=== PATIENT | female | born 1950 | race Two or more races ===

== ENCOUNTER 2019-05-22 12:10 | Emergency (ER) | payer MEDICARE, OTHER ==
[~2019-05-22] VITALS: Ht 152.4 cm; Wt 59.9 kg
[~2019-05-22 12:10] MED LIST: ASPI81TA27; BENA20TA14; CLON2TAB; FLUO-125; OYST500T29; SIMV-8
[2019-05-22 13:32] VITALS: BP 143/52
[2019-05-22] MEDS: ACETAMINOPHEN 325 MG TAB PO ONE (14:12)
== END 2019-05-22 14:33 | disposition home or self-care (01) ==
LOC: ER 12:10
DX: S83.92XA Sprain of unspecified site of left knee, initial encounter (principal); M17.11 Unilateral primary osteoarthritis, right knee; E78.5 Hyperlipidemia, unspecified; I10 Essential (primary) hypertension; Z79.899 Other long term (current) drug therapy; X50.1XXA Overexertion from prolonged static or awkward postures, initial encounter; Y93.89 Activity, other specified; Y92.89 Other specified places as the place of occurrence of the external cause; Y99.8 Other external cause status
CPT/HCPCS: 73562

== ENCOUNTER 2019-07-16 21:17 | Emergency (ER) | payer MEDICARE, OTHER ==
[~2019-07-16] VITALS: Ht 152.4 cm; Wt 61.7 kg
[~2019-07-16 21:17] MED LIST changes: +ASPI-404; -ASPI81TA27
[2019-07-17] MEDS ORDERED: ACETAMINOPHEN/CODEINE#3 (300/30mg) TAB PO ONE (03:00)
[2019-07-17 03:02] VITALS: BP 156/62
== END 2019-07-17 03:13 | disposition home or self-care (01) ==
LOC: ER 21:19
DX: K08.89 Other specified disorders of teeth and supporting structures (principal); R22.0 Localized swelling, mass and lump, head; I10 Essential (primary) hypertension; E78.5 Hyperlipidemia, unspecified; Z79.899 Other long term (current) drug therapy; Z79.82 Long term (current) use of aspirin

== ENCOUNTER 2019-10-29 13:21 | Emergency (ER) | payer MEDICARE, OTHER ==
[~2019-10-29] VITALS: Ht 152.4 cm; Wt 61.7 kg
[2019-10-29 13:35] VITALS: BP 125/60
== END 2019-10-29 17:19 | disposition home or self-care (01) ==
LOC: ER 13:39
DX: J06.9 Acute upper respiratory infection, unspecified (principal); I10 Essential (primary) hypertension; E78.5 Hyperlipidemia, unspecified; Z90.89 Acquired absence of other organs
CPT/HCPCS: 93005

== ENCOUNTER 2019-11-14 12:28 | Emergency (ER) | payer MEDICARE, OTHER ==
[~2019-11-14] VITALS: Ht 152.4 cm; Wt 59.9 kg
[2019-11-14 15:39] VITALS: BP 141/69
== END 2019-11-14 15:49 | disposition home or self-care (01) ==
LOC: ER 12:28
DX: S09.11XA Strain of muscle and tendon of head, initial encounter (principal); E78.5 Hyperlipidemia, unspecified; I10 Essential (primary) hypertension; R42 Dizziness and giddiness; Z79.899 Other long term (current) drug therapy; W18.39XA Other fall on same level, initial encounter; Y93.89 Activity, other specified; Y92.89 Other specified places as the place of occurrence of the external cause; Y99.8 Other external cause status
CPT/HCPCS: 70450; 71046; 72125

== ENCOUNTER 2023-03-14 19:36 | Emergency (ER) | payer MEDICARE, OTHER ==
[~2023-03-14] VITALS: Ht 152.4 cm; Wt 56.5 kg
[~2023-03-14 19:36] MED LIST changes: -ASPI-404; +ASPI-543
[2023-03-14 22:38] LABS: Urine Bacteria FEW /hpf (None Seen); Urine Blood Negative /uL (Negative); Urine Specific Gravity 1.006 (1.001-1.035); Urine WBC 28 /hpf (0 - 5)
[2023-03-14 22:42] LABS: Albumin 4.2 g/dL (3.4-5.0); Calcium 9.3 mg/dL (8.5-10.1); Potassium 4.4 mmol/L (3.5-5.1)
[2023-03-14 22:46] LABS: BUN/Creatinine Ratio 12.1 (10.0-20.0); Bilirubin, Total 0.4 mg/dL (0.2-1.0); Total Protein 7.5 g/dL (6.4-8.2)
[2023-03-14 22:54] LABS: Basophils # (auto) 0 10 ^3/uL (0-0.2); Basophils % (auto) 0.4 % (0.0-2.0); Eosinophils # (auto) 0.2 10 ^3/uL (0-0.8); Eosinophils % (auto) 2.4 % (0.0-7.0); Hematocrit 36.4 % (36.0-46.0); Hemoglobin 12.4 g/dL (12.2-16.2); Lymphocytes # (auto) 3.6 10 ^3/uL (0.4-5.4); Lymphocytes % (auto) 45.7 % (10.0-50.0); Mean Corpuscular Hemoglobin 30.3 pg (28.0-32.0); Mean Corpuscular Volume 89.2 fL (80.0-100.0); Monocytes # (auto) 0.6 10 ^3/uL (0-1.3); Monocytes % (auto) 7.5 % (0.0-12.0); Neutrophils # (auto) 3.4 10 ^3/uL (1.6-8.6); Nucleated Red Blood Cells % 0.1 %; Red Blood Cells 4.08 10^6/uL (4.0-5.20); Red Cell Distribution Width 14.6 % (11.8-14.3); White Blood Cell 7.8 10^3/uL (4.4-10.8)
[2023-03-15] MEDS ORDERED: cefTRIAXone SOD 1,000 MG VL IM ONE (03:15)
[2023-03-15] MEDS ORDERED: METR500T PO (03:35)
[2023-03-15] MEDS ORDERED: PERCOT PO (03:35)
[2023-03-15] MEDS ORDERED: CIPR-173 PO (03:35)
[2023-03-15 04:05] VITALS: BP 160/54
[2023-03-17] MEDS ORDERED: NITR-87 PO (00:12)
== END 2023-03-15 04:09 | disposition home or self-care (01) ==
LOC: ER 19:36
DX: K57.10 Diverticulosis of small intestine without perforation or abscess without bleeding (principal); N39.0 Urinary tract infection, site not specified; F41.9 Anxiety disorder, unspecified; F32.9 Major depressive disorder, single episode, unspecified; I10 Essential (primary) hypertension; E78.5 Hyperlipidemia, unspecified; Z79.82 Long term (current) use of aspirin; Z79.899 Other long term (current) drug therapy; Z90.89 Acquired absence of other organs
CPT/HCPCS: 36415; 74176; 80053; 81001; 83690; 85025; 93005; 96372; 99285; J0696

== ENCOUNTER 2024-05-14 12:14 | Inpatient (IN) | payer MEDICARE, OTHER ==
[~2024-05-14] VITALS: Ht 157.5 cm; Wt 59.0 kg
[~2024-05-14 12:14] MED LIST changes: +BENA-36; -BENA20TA14; +CIPR-173 PO; +CLON-1005; -CLON2TAB; +METR500T PO; +NITR-87 PO; +PERCOT PO; -SIMV-8; +SIMV20TA20
[2024-05-14 12:51] LABS: Urine Bacteria None Seen /hpf (None Seen)
[2024-05-14 13:04] LABS: Urine Blood Negative /uL (Negative); Urine Clarity Clear (Clear); Urine Color Light-Yellow (Yellow); Urine Protein, UAD Negative (Negative); Urine Specific Gravity 1.006 (1.001-1.035); Urine Urobilinogen Normal (Negative); Urine WBC 2 /hpf (0 - 5); Urine pH 6.5 (5.0-9.0)
[2024-05-14] MEDS: ONDANSETRON HCL 4 MG/2 ML VIAL IV ONE (16:54)
[2024-05-14 17:04] LABS: Basophils # (auto) 0.1 10 ^3/uL (0-0.2); Basophils % (auto) 1.1 % (0.0-2.0); Eosinophils # (auto) 0.2 10 ^3/uL (0-0.8); Eosinophils % (auto) 2.6 % (0.0-7.0); Hematocrit 37.5 % (36.0-46.0); Hemoglobin 12.9 g/dL (12.2-16.2); Lymphocytes # (auto) 3.2 10 ^3/uL (0.4-5.4); Lymphocytes % (auto) 34.9 % (10.0-50.0); Mean Corpuscular Hemoglobin 30.1 pg (28.0-32.0); Mean Corpuscular Hgb Conc. 34.5 g/dL (32.0-36.0); Mean Corpuscular Volume 87.3 fL (80.0-100.0); Monocytes # (auto) 0.8 10 ^3/uL (0-1.3); Monocytes % (auto) 8.3 % (0.0-12.0); Neutrophils # (auto) 4.9 10 ^3/uL (1.6-8.6); Neutrophils % (auto) 53.1 % (37.0-80.0); Nucleated Red Blood Cells % 0.1 %; Red Blood Cells 4.29 10^6/uL (4.0-5.20); Red Cell Distribution Width 14.3 % (11.8-14.3); White Blood Cell 9.3 10^3/uL (4.4-10.8)
[2024-05-14 17:28] LABS: INR 0.98 (0.9-1.15); Partial Thromboplastin Time 26.6 SEC (24.5-34.5); Prothrombin Time 10.4 sec (9.3-11.8)
[2024-05-14 17:39] LABS: Alanine Aminotransferase 40 U/L (7-40); Albumin 4.2 g/dL (3.2-4.8); Alkaline Phosphatase 112 U/L (46-116); Anion Gap 7 (5-15); Aspartate Aminotransferase 33 U/L (13-40); BUN/Creatinine Ratio 15.1 (10.0-20.0); Bilirubin, Total 0.4 mg/dL (0.2-1.0); Blood Urea Nitrogen 16 mg/dL (9-23); Calcium 9.8 mg/dL (8.7-10.4); Carbon Dioxide 25 mmol/L (20-30); Chloride 104 mmol/L (98-107); Glucose 83 mg/dL (74-106); Lipase 31 U/L (12-53); Magnesium 2.2 mg/dL (1.6-2.6); Potassium 4.6 mmol/L (3.5-5.1); Sodium 136 mmol/L (136-145)
[2024-05-14 17:40] LABS: Total Protein 6.9 g/dL (5.7-8.2)
[2024-05-15] VITALS (8 sets, daily range): BP systolic 119–144; BP diastolic 51–86; PULSE 62–80; RESP 16–18; TEMP 96.7–98.2; O2SAT 94–100
[2024-05-15] MEDS: IOHEXOL 350 MG/ML 100ML IJ ONE (01:00)
[2024-05-15] MEDS ORDERED: ONDANSETRON HCL 4 MG/2 ML VIAL IV PRN (03:00)
[2024-05-15 03:22] LABS: Chloride 102 mmol/L (98-107); Potassium 4.1 mmol/L (3.5-5.1); Sodium 133 mmol/L (136-145)
[2024-05-15 03:23] LABS: Anion Gap 4 (5-15); Calcium 9.6 mg/dL (8.7-10.4); Carbon Dioxide 27 mmol/L (20-30)
[2024-05-15 03:28] LABS: BUN/Creatinine Ratio 11.7 (10.0-20.0); Blood Urea Nitrogen 11 mg/dL (9-23); Glucose 92 mg/dL (74-106)
[2024-05-15] MEDS: ACETAMINOPHEN 325 MG TAB PO PRN (03:31)
[2024-05-15] MEDS: cefTRIAXone 1GM/50ML D5W 50 ML IV SCH (03:33)
[2024-05-15] MEDS: BENAZEPRIL HCL 10 MG TAB PO SCH (10:15)
[2024-05-15] MEDS: FLUoxetine HCL 20 MG CAP PO SCH (10:15)
[2024-05-15] MEDS: ASPirin 81 mg TAB PO SCH (10:15)
[2024-05-15] MEDS: ENOXAPARIN SOD 40 MG/0.4 ML SYRINGE SC SCH (10:16)
[2024-05-15] MEDS: FLUoxetine HCL 20 MG CAP PO ONE (11:57)
[2024-05-15] MEDS: ATORVASTATIN 20 MG TAB PO SCH (22:05)
[2024-05-16 01:00] VITALS: BP 105/57; PULSE 58; RESP 16; TEMP 97.6; O2SAT 96
[2024-05-16 05:00] VITALS: BP 116/52; PULSE 58; RESP 16; TEMP 97.7; O2SAT 95
[2024-05-16 05:55] LABS: Basophils # (auto) 0.1 10 ^3/uL (0-0.2); Basophils % (auto) 0.8 % (0.0-2.0); Eosinophils # (auto) 0.3 10 ^3/uL (0-0.8); Eosinophils % (auto) 3.6 % (0.0-7.0); Hematocrit 37.1 % (36.0-46.0); Hemoglobin 12.5 g/dL (12.2-16.2); Lymphocytes # (auto) 2.7 10 ^3/uL (0.4-5.4); Lymphocytes % (auto) 37.1 % (10.0-50.0); Mean Corpuscular Hemoglobin 29.7 pg (28.0-32.0); Mean Corpuscular Hgb Conc. 33.8 g/dL (32.0-36.0); Mean Corpuscular Volume 87.8 fL (80.0-100.0); Monocytes # (auto) 0.8 10 ^3/uL (0-1.3); Monocytes % (auto) 10.5 % (0.0-12.0); Neutrophils # (auto) 3.5 10 ^3/uL (1.6-8.6); Red Blood Cells 4.22 10^6/uL (4.0-5.20); White Blood Cell 7.3 10^3/uL (4.4-10.8)
[2024-05-16 06:16] LABS: Alanine Aminotransferase 29 U/L (7-40); Albumin 3.7 g/dL (3.2-4.8); Alkaline Phosphatase 98 U/L (46-116); Anion Gap 6 (5-15); Aspartate Aminotransferase 21 U/L (13-40); BUN/Creatinine Ratio 12.4 (10.0-20.0); Blood Urea Nitrogen 11 mg/dL (9-23); Calcium 9.4 mg/dL (8.7-10.4); Carbon Dioxide 27 mmol/L (20-30); Chloride 105 mmol/L (98-107); Glucose 99 mg/dL (74-106); Sodium 138 mmol/L (136-145)
[2024-05-16 06:17] LABS: Bilirubin, Total 0.6 mg/dL (0.2-1.0); Total Protein 6.4 g/dL (5.7-8.2)
[2024-05-16 07:30] VITALS: BP 107/55; PULSE 64; RESP 18; TEMP 97.9; O2SAT 97
[2024-05-16 08:00] VITALS: RESP 16; O2SAT 99
[2024-05-16] MEDS: FLUoxetine HCL 20 MG CAP PO SCH (09:58)
[2024-05-16] MEDS ORDERED: NITR-52 PO (10:27)
[2024-05-16 13:00] VITALS: BP 130/53; PULSE 63; RESP 20; TEMP 98.2; O2SAT 97
[2024-05-16 13:25] VITALS: BP 107/55; TEMP 36.6
== END 2024-05-16 15:00 | disposition home or self-care (01) | DRG 689 ==
LOC: ER 12:14 → OVERFLOW 05-15 02:56 → WEST WING 05-15 04:25
PROVIDERS: ADMIT Internal Medicine; ATTEND Internal Medicine
DX: N39.0 Urinary tract infection, site not specified (principal); N17.0 Acute kidney failure with tubular necrosis; I10 Essential (primary) hypertension; F32.A Depression, unspecified; E78.5 Hyperlipidemia, unspecified; Z79.899 Other long term (current) drug therapy; R63.1 Polydipsia
CPT/HCPCS: 36415; 80048; 80053; 81001; 83605; 83690; 83735; 84484; 85025; 85610; 85730; 87040; 87086; G0378; J2405

== ENCOUNTER 2025-03-08 09:01 | Inpatient (IN) | payer MEDICARE, OTHER ==
[~2025-03-08] VITALS: Ht 167.6 cm; Wt 59.9 kg
[~2025-03-08 09:01] MED LIST changes: -CIPR-173 PO; -METR500T PO; +NITR-52 PO; -NITR-87 PO
--- NOTE | 2025-03-08 09:21 | ED.PDOC ---
History of Present Illness HPI Comments 74 y/o F, BIBA, with PMHx of HLD, HTN, Anxiety, and Depression presents to the ED for CC of generalized weakness. EMS reports, patient is coming from home where emergency medical personal was contacted by son, due to patient having generalized weakness x1 week. Upon arrival to the ED, patient complains of chest pain with associated palpitations; patient is visibly diaphoretic and hypertensive. Patient is unable to answer further questions or medical history at this time due to discomfort and malaise. Chief Complaint: General Weakness Time Seen by MD: 09:15 Primary Care Provider: UNKNOWN Reviewed Notes: Nurses Notes, Pack Room Operator Notes, Medications, Allergies Allergies: Coded Allergies: NO KNOWN ALLERGIES (Unverified , 07/04/12) Home Meds Active Scripts Nitrofurantoin (Nitrofurantoin) 100 Mg Cap, 1 CAP PO BID for 7 Days, #14 CAP Prov:WILBUR PRATER RESIDENT 05/16/24 Oxycodone W/ Acetaminophen (Percocet 5/325MG) 1 Tab Tb, 1 TAB PO BID for 7 Days, #14 TAB Prov:JEAN PIERRE YANEZ MD 03/15/23 Reported Medications Simvastatin (Simvastatin) 20 Mg Tab 07/04/12 Benazepril Hcl (Benazepril Hcl) 20 Mg Tab 07/04/12 Oyster Shell Calcium (Calcium) 500 Mg Tab 07/04/12 Clonazepam (Klonopin) 2 Mg Tab 07/04/12 Fluoxetine Hcl (Fluoxetine Hcl) 20 Mg Cap 07/04/12 Aspirin (Aspir-Low) 81 Mg Tab 07/04/12 Information Source: Patient, Emergency Med Personnel Mode of Arrival: EMS Severity: Moderate Timing: Days Duration: Since onset Past Medical History PAST MEDICAL HISTORY: Anxiety, Depression, High Lipids, HTN, UTI'S Surgical History: Tonsillectomy ORDNANCE HANDLER History: No Pertinent ORDNANCE HANDLER History Family History Family History: Reviewed,noncontributory to illness Social History Smoker: Non-Smoker Alcohol: Denies ETOH Use Drugs: Denies Drug Use Lives In: Home Constitutional: reports: weakness; denies: chills, diaphoresis, fatigue, fever, malaise, sweats, others EENTM: denies: blurred vision, double vision, ear bleeding, ear discharge, ear drainage, ear pain, ear ringing, eye pain, eye redness, hearing loss, mouth pain, mouth swelling, nasal discharge, nose bleeding, nose congestion, nose pain, photophobia, tearing, throat pain, throat swelling, voice changes, others Respiratory: denies: cough, hemoptysis, orthopnea, SOB at rest, shortness of breath, SOB with excertion, stridor, wheezing, others Cardiovascular: reports: chest pain, palpitations; denies: dizzy spells, magdalena phoresis, Dyspnea on exertion, edema, irregular heart beat, left arm pain, lightheadedness, PND, syncope, others Gastrointestinal: denies: abdomen distended, abdominal pain, blood streaked bowels, constipated, diarrhea, dysphagia, difficulty swallowing, hematemesis, melena, nausea, poor appetite, poor fluid intake, rectal bleeding, rectal pain, vomiting, others Genitourinary: denies: abnormal vagina bleeding, burning, dyspareunia, dysuria, flank pain, frequency, hematuria, incontinence, pain, , vagina discharge, urgency, others Neurological: denies: dizziness, fainting, headache, left sided numbness, left sided weakness, numbness, paresthesia, pre-existing deficit, right sided numbness, right sided weakness, seizure, speech problems, tingling, tremors, weakness, others Musculoskeletal: denies: back pain, gout, joint pain, joint swelling, muscle pain, muscle stiffness, neck pain, others Integumetry: denies: bruises, change in color, change in hair/nails, dryness, laceration, lesions, lumps, rash, wounds, others Allergic/Immunocompromised: denies: Difficulty Healing, Frequent Infections, Hives, Itching, others Hematologic/Lymphatic: denies: anemia, blood clots, easy bleeding, easy bruising, swollen glands, others Endocrine: denies: excessive hunger, excessive sweating, excessive thirst, excessive urination, flushing, intolerance to cold, intolerance to heat, unexplained weight gain, unexplained weight loss, others Psychiatric: denies: anxiety, bipolar disorder, depression, hopeless, panic disorder, schizophrenia, sleepless, suicidal, others All Other Systems: Reviewed and Negative Physical Exam General Appearance: Moderate Distress HEENT: Normal ENT Inspection, Pharynx Normal, TMs Normal Neck: Full Range of Motion, Non-Tender, Normal, Normal Inspection Respiratory: Chest Non-Tender, Lungs Clear, No Accessory Muscle Use, No Respiratory Distress, Normal Breath Sounds Cardiovascular: No Edema, No JVD, No Murmur, No Gallop, Normal Peripheral Pulses, Regular Rate/Rhythm Breast Exam: Deferred Gastrointestinal: No Organomegaly, Non Tender, No Pulsatile Mass, Normal Bowel Sounds, Soft Genitalia: Deferred Pelvic: Deferred Rectal: Deferred Extremities: No calf tenderness, Normal capillary refill, Normal inspection, Normal range of motion, Non-tender, No pedal edema Musculoskeletal : Apperance: Normal Neurologic: Alert, inoculator II-XII nml as Tested, No Motor Deficits, Normal Affect, Normal Mood, No Sensory Deficits Cerebellar Function: NOT DONE Reflexes: NOT DONE Skin: Dry, Normal Color, Warm Peripheral Pulses: 3+ Radial (R), 3+ Radial (L) Lymphatic: No Adenopathy Was a procedure done? Was a procedure done?: No EKG EKG : Pulse Rate (adult): 72 [place]: Normal Cardiac Rhythm: NSR Block: None Hypertrophy: None ST: Normal Differential Dx Considerations may include: Hypertensive urgency, electrolyte imbalance, X-Ray, Labs, Meds, VS Vital Signs Date Time Temp Pulse Resp B/P (MAP) Pulse Ox O2 Delivery O2 Flow Rate FiO2 03/08/25 09:55 174/64 03/08/25 09:38 72 03/08/25 09:30 98.3 62 14 174/64 (100) 96 98.3 03/08/25 09:30 62 14 96 Room Air* 0 21 03/08/25 09:30 98.3 64 16 195/83 (120) 98 98.3 03/08/25 09:05 72 Lab Test 03/08/25 09:47 03/08/25 09:39 03/08/25 09:20 Range/Units Sodium Level 136 136-145 mmol/L Potassium Level 4.2 3.5-5.1 mmol/L Chloride Level 104 98-107 mmol/L Carbon Dioxide Level 22 20-31 mmol/L Anion Gap 10 5-15 Blood Urea Nitrogen 15 9-23 mg/dL Creatinine 0.99 0.550-1.02 mg/dL Glomerular Filtration Rate Calc 59 >90 mL/min BUN/Creatinine Ratio 15.2 10.0-20.0 Serum Glucose 125 H 74-106 mg/dL Calcium Level 9.9 8.7-10.4 mg/dL Urine Color Light-yellow Yellow Urine Clarity Clear Clear Urine pH 7.5 5.0-9.0 Urine Specific [place] 1.010 1.001-1.035 Urine Protein Negative Negative Urine Ketones Negative Negative Urine Blood Negative Negative /uL Urine Nitrite Negative Negative Urine Bilirubin Negative Negative Urine Urobilinogen Normal Negative mg/dL Urine Leukocyte Esterase Negative Negative /uL Urine RBC <1 0 - 4 /hpf Urine Microscopic WBC < 1 0-5 /HPF Urine Squamous Epithelial Cells None seen <5 /hpf Urine Bacteria None seen None Seen /hpf Urine Glucose Normal Normal mg/dL White Blood Count 7.3 4.4-10.8 10^3/uL Red Blood Count 4.67 4.0-5.20 10^6/uL Hemoglobin 14.2 12.2-16.2 g/dL Hematocrit 41.0 36.0-46.0 % Mean Corpuscular Volume 87.8 80.0-100.0 fL Mean Corpuscular Hemoglobin 30.5 28.0-32.0 pg Mean Corpuscular Hemoglobin Concent 34.7 32.0-36.0 g/dL Red Cell Distribution Width 14.7 H 11.8-14.3 % Platelet Count 359 140-450 10^3/uL Mean Platelet Volume 7.7 6.9-10.8 fL Neutrophils (%) (Auto) 46.9 37.0-80.0 % Lymphocytes (%) (Auto) 43.2 10.0-50.0 % Monocytes (%) (Auto) 7.0 0.0-12.0 % Eosinophils (%) (Auto) 1.7 0.0-7.0 % Basophils (%) (Auto) 1.2 0.0-2.0 % Neutrophils # (Auto) 3.4 1.6-8.6 10 ^3/uL Lymphocytes # (Auto) 3.1 0.4-5.4 10 ^3/uL Monocytes # (Auto) 0.5 0-1.3 10 ^3/uL Eosinophils # (Auto) 0.1 0-0.8 10 ^3/uL Basophils # (Auto) 0.1 0-0.2 10 ^3/uL Nucleated Red Blood Cells 0.1 % Troponin I High Sensitivity < 3 L </=34 ng/L Current Medications Medications (Trade) Dose Ordered Sig/Gabriel Route Start Time Stop Time Status Last Admin Aspirin 325 mg ONCE ONCE PO 03/08/25 09:15 03/08/25 09:16 DC 03/08/25 09:55 Clonidine HCl (Catapres Tablet) 0.2 mg ONCE ONCE PO 03/08/25 10:00 03/08/25 10:01 DC 03/08/25 09:55 [place] [id number] Ph: [phone] DIAGNOSTIC IMAGING Diagnostic Imaging Report : [id number] Signed PATIENT: RAE MONTENEGRO ACCT: [id number] UNIT: [id number] : 1950 LOC: ER ROOM / BED: / AGE / SEX: 74 / F ADM STATUS: REG ER SERVICE 7 ORDERING PHYSICIAN: PRAKASH TAPIA MD PROCEDURE(s): CXRP - CHEST PORTABLE REASON: sob ORDER NUMBER(s): [id number], ACCESSION NUMBER(s): [id number] EXAM: XR Chest, 1 View CLINICAL INDICATION: sob TECHNIQUE: Frontal view of the chest. COMPARISON: None FINDINGS: LUNGS AND PLEURAL SPACES: Unremarkable. No consolidation. No pneumothorax. HEART: Unremarkable. No cardiomegaly. MEDIASTINUM: Unremarkable. Normal mediastinal contour. BONES/JOINTS: Unremarkable. No acute fracture. OTHER FINDINGS: . None. IMPRESSION: No acute cardiopulmonary process. ATED BY: KOBI ESCALANTE MD DICTATED DATE/TIME: 03/08/25 1000 SIGNED BY: KOBI ESCALANTE MD SIGNED DATE/TIME: 03/08/25 1000 CC: [place] [id number] Ph: [phone] DIAGNOSTIC IMAGING Diagnostic Imaging Report : [id number] Signed PATIENT: RAE MONTENEGRO ACCT: [id number] UNIT: [id number] : 1950 LOC: ER ROOM / BED: / AGE / SEX: 74 / F ADM STATUS: REG ER SERVICE 3 ORDERING PHYSICIAN: PRAKASH TAPIA MD PROCEDURE(s): HWOCT - HEAD WITHOUT CONTRAST REASON: tia ORDER NUMBER(s): [id number], ACCESSION NUMBER(s): [id number] EXAM: CT Head Without Intravenous Contrast CLINICAL INDICATION: tia TECHNIQUE: Axial computed tomography images of the head/brain without intravenous contrast. This CT exam was performed using one or more of the following dose reduction techniques: automated exposure control, adjustment of the mA and/or kV according to patient size, and/or use of iterative reconstruction technique. CONTRAST: COMPARISON: HEAD WITHOUT CONTRAST on DOS: 11/14/19 FINDINGS: BRAIN AND EXTRA-AXIAL SPACES: The cerebral and cerebellar sulci are mildly prominent consistent with mild brain atrophy. No acute intracranial hemorrhage, midline shift or mass effect. If symptoms persist, further evaluation with MRI is recommended. No significant white matter disease. BONES/JOINTS: Unremarkable. No acute fracture. SOFT TISSUES: Unremarkable. SINUSES: Unremarkable as visualized. No acute sinusitis. MASTOID AIR CELLS: Unremarkable as visualized. No mastoid effusion. OTHER FINDINGS: . . IMPRESSION: No acute intracranial hemorrhage, midline shift or mass effect. If symptoms p ersist, further evaluation with MRI is recommended. ATED BY: KOBI ESCALANTE MD DICTATED DATE/TIME: 03/08/25 1009 SIGNED BY: KOBI ESCALANTE MD SIGNED DATE/TIME: 03/08/25 1009 CC: Patient alert. Complaining of chest pain. Generalized weakness. Vitals stable. Unable to express herself completely. Does have good muscle strength. Establish intravenous access. Was given fluids. Was given aspirin. Was given Ativan. Blood pressure elevated. Reviewed her history. Explained to the patient. Continue monitoring. EKG reviewed does not show any acute changes. Chest x-ray reviewed does not show any acute changes. CT scan of the head reviewed does not show any acute changes. Time of 1ST Reevaluation: 09:45 Reevaluation 1ST: Unchanged Patient Education/Counseling: Diagnosis, Treatment Family Education/Counseling: No Family Present Departure 1 Departure Time of Disposition: :27 Impression: Primary Impression: Hypertensive urgency Additional Impressions: Generalized weakness TIA (transient ischemic attack) Disposition: ADMITTED INPATIENT Admit to: Med Surg Condition: Guarded Critical Care Note Critical Care Time?: Yes (45 min-critical care time only) Critical care comment: Unable to express herself continue to monitor Stability Stability form required: No Heart Score Heart Score: Heart Score Response (Comments) Value History Slightly Suspicious 0 EKG Normal 0 Age >65 2 Risk Factors >3 or Hx ASHD 2 Troponin Normal limit 0 Total 4 I personally scribed for PRAKASH TAPIA MD ([email or web address]) on 03/08/25 at 09:21. Electronically submitted by Liza Chavis ([employer]). I personally scribed for PRAKASH TAPIA MD ([email or web address]) on 03/08/25 at 09:38. Electronically submitted by Liza Chavis ([employer]). I personally scribed for PRAKASH TAPIA MD ([email or web address]) on 03/08/25 at 10:09. Electronically submitted by Liza Chavis ([employer]). I personally scribed for PRAKASH TAPIA MD ([email or web address]) on 03/08/25 at 10:20. Electronically submitted by Liza Chavis ([email or web address]). PRAKASH TAPIA MD Mar 08, 2025 09:21
[2025-03-08 09:30] VITALS: PULSE 62; RESP 14; O2SAT 96
[2025-03-08 09:34] LABS: Basophils # (auto) 0.1 10 ^3/uL (0-0.2); Basophils % (auto) 1.2 % (0.0-2.0); Eosinophils # (auto) 0.1 10 ^3/uL (0-0.8); Eosinophils % (auto) 1.7 % (0.0-7.0); Hemoglobin 14.2 g/dL (12.2-16.2); Lymphocytes # (auto) 3.1 10 ^3/uL (0.4-5.4); Lymphocytes % (auto) 43.2 % (10.0-50.0); Mean Corpuscular Hemoglobin 30.5 pg (28.0-32.0); Mean Corpuscular Hgb Conc. 34.7 g/dL (32.0-36.0); Mean Corpuscular Volume 87.8 fL (80.0-100.0); Monocytes # (auto) 0.5 10 ^3/uL (0-1.3); Neutrophils # (auto) 3.4 10 ^3/uL (1.6-8.6); Neutrophils % (auto) 46.9 % (37.0-80.0); Nucleated Red Blood Cells % 0.1 %; Platelet Count (auto) 359 10^3/uL (140-450); Red Blood Cells 4.67 10^6/uL (4.0-5.20); Red Cell Distribution Width 14.7 % (11.8-14.3); White Blood Cell 7.3 10^3/uL (4.4-10.8)
[2025-03-08 09:52] LABS: Urine Bacteria None Seen /hpf (None Seen)
[2025-03-08] MEDS: cloNIDine HCL 0.1 MG TAB PO ONE (09:55)
[2025-03-08] MEDS: ASPirin 325 MG TAB PO ONE (09:55)
[2025-03-08 10:02] LABS: Urine Blood Negative /uL (Negative); Urine Clarity Clear (Clear); Urine Protein, UAD Negative (Negative); Urine Squamous Epithelial Cell None Seen /hpf (<5); Urine Urobilinogen Normal (Negative); Urine WBC < 1 /HPF (0-5); Urine pH 7.5 (5.0-9.0)
--- NOTE | 2025-03-08 10:03 | DVH ---
EXAM: XR Chest, 1 View CLINICAL INDICATION: sob TECHNIQUE: Frontal view of the chest. COMPARISON: None FINDINGS: LUNGS AND PLEURAL SPACES: Unremarkable. No consolidation. No pneumothorax. HEART: Unremarkable. No cardiomegaly. MEDIASTINUM: Unremarkable. Normal mediastinal contour. BONES/JOINTS: Unremarkable. No acute fracture. OTHER FINDINGS: . None. IMPRESSION: No acute cardiopulmonary process.
[2025-03-08 10:04] LABS: Chloride 104 mmol/L (98-107); Potassium 4.2 mmol/L (3.5-5.1); Sodium 136 mmol/L (136-145)
[2025-03-08] MEDS: LORazepam 2MG/ML-1ML VIAL IV ONE (10:04)
[2025-03-08 10:05] LABS: Anion Gap 10 (5-15); Calcium 9.9 mg/dL (8.7-10.4); Carbon Dioxide 22 mmol/L (20-31)
[2025-03-08 10:06] LABS: Urine Color Light-Yellow (Yellow)
[2025-03-08 10:10] LABS: BUN/Creatinine Ratio 15.2 (10.0-20.0); Blood Urea Nitrogen 15 mg/dL (9-23); Glucose 125 mg/dL (74-106)
--- NOTE | 2025-03-08 10:11 | DVH ---
EXAM: CT Head Without Intravenous Contrast CLINICAL INDICATION: tia TECHNIQUE: Axial computed tomography images of the head/brain without intravenous contrast. This CT exam was performed using one or more of the following dose reduction techniques: automated exposure control, adjustment of the mA and/or kV according to patient size, and/or use of iterative reconstru ction technique. CONTRAST: COMPARISON: HEAD WITHOUT CONTRAST on DOS: 11/14/19 FINDINGS: BRAIN AND EXTRA-AXIAL SPACES: The cerebral and cerebellar sulci are mildly prominent consistent wit h mild brain atrophy. No acute intracranial hemorrhage, midline shift or mass effect. If symptoms pe rsist, further evaluation with MRI is recommended. No significant white matter disease. BONES/JOINTS: Unremarkable. No acute fracture. SOFT TISSUES: Unremarkable. SINUSES: Unremarkable as visualized. No acute sinusitis. MASTOID AIR CELLS: Unremarkable as visualized. No mastoid effusion. OTHER FINDINGS: . . IMPRESSION: No acute intracranial hemorrhage, midline shift or mass effect. If symptoms persist, further evaluat ion with MRI is recommended.
[2025-03-08] MEDS: SODIUM CHLORIDE 0.9% 1,000 ML IV ONE ×2 (10:41→12:00)
[2025-03-08] MEDS: guaiFENesin-DM 100/10mg/5ml SYR PO ONE (12:19)
[2025-03-08] MEDS: SODIUM CHLORIDE 0.9% 1,000 ML IV SCH (14:30)
[2025-03-08] MEDS: ENOXAPARIN SOD 40 MG/0.4 ML SYRINGE SC ONE (14:40)
--- NOTE | 2025-03-08 15:28 | DVHHP2 ---
History of Present Illness Reason for Visit: Generalized weakness History of Present Illness This is a 74-year-old female with history of hypertension, hyperlipidemia, anxiety, depression and UTI presents to ED with chief complaint of generalized weakness. EMS reports patient is coming from home where emergency medical personnel was contacted by son due to patient having generalized weakness for one week. Upon arrival to the ED patient complaint of chest pain with associated palpitation visible diaphoresis and hypertension. When evaluated patient in ER bed 5, she states brain fog that may be stemming from multiple medication that she is currently taking. She also comments about not being able to sleep for the past three days. 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 She reports increased stress from her son along with missing her who 11 years ago. The patient is concerned about her symptoms and would like to be further evaluated and treated. The patient will be admitted under hospitalist care to the medical-surgical unit. The patient denies fever, chills, headache, dizziness, palpitation, shortness of breath, nausea, vomiting, abdominal pain, diarrhea, constipation and other associated symptoms. The plan has been discussed with the patient and primary RN in which all questions concerns have been addressed. Cardiovascular: HTN, hyperipidemia Psych: Anxiety, Depression Renal/: UTI Past Surgical History: Tonsillectomy Family History: None Smoke: No ALCOHOL: none Drugs: None Lives: with Family Domestic Violence: Neg Review of Systems Constitutional: Yes: Weakness Allergies: Coded Allergies: NO KNOWN ALLERGIES (Unverified , 07/04/12) Medications Current Medications Medications Dose Ordered Sig/Gabriel Route Start Time Stop Time Status Last Admin Dose Admin Sodium Chloride 1,000 ml @ 60 mls/hr [id number] IV 03/08/25 14:00 03/08/25 14:30 60 MLS/HR Enoxaparin Sodium 40 mg DAILY SC 03/09/25 10:00 Acetaminophen 650 mg Q6HP PRN PO 03/08/25 14:00 Aspirin 81 mg DAILY PO 03/09/25 10:00 Exam Vital Signs Vital Signs Date Time Temp Pulse Resp B/P (MAP) Pulse Ox O2 Delivery O2 Flow Rate FiO2 03/08/25 14:00 51 12 108/48 (68) 98 03/08/25 12:00 98.3 98.3 03/08/25 09:30 Room Air* 0 21 General Appearance: Alert, Oriented X3, Cooperative, No acute distress HEENT: Atraumatic, PERRLA, Mucous membr. moist/pink Respiratory: Clear to auscultation, Normal air movement Cardiovascular: Normal S1, Normal S2, No murmurs Abdominal: Normal bowel sounds, Soft, No tenderness, No hepatospenomegaly, No masses Extremities: No clubbing, No cyanosis, No edema, Normal pulses, No tenderness/swelling Skin: No rashes, No breakdown Neuro: Normal gait, Normal speech, Strength at 5/5 X4 ext, Normal tone, S ensation intact, Cranial nerves 3-12 NL, Reflexes 2+ Psych/Mental Status: Mental status NL Labs/Xrays Labs Test 03/08/25 10:28 03/08/25 09:47 03/08/25 09:39 03/08/25 09:20 Range/Units Troponin I High Sensitivity 4 </=34 ng/L Sodium Level 136 136-145 mmol/L Potassium Level 4.2 3.5-5.1 mmol/L Chloride Level 104 98-107 mmol/L Carbon Dioxide Level 22 20-31 mmol/L Anion Gap 10 5-15 Blood Urea Nitrogen 15 9-23 mg/dL Creatinine 0.99 0.550-1.02 mg/dL Glomerular Filtration Rate Calc 59 >90 mL/min BUN/Creatinine Ratio 15.2 10.0-20.0 Serum Glucose 125 H 74-106 mg/dL Calcium Level 9.9 8.7-10.4 mg/dL Urine Color Light-yellow Yellow Urine Clarity Clear Clear Urine pH 7.5 5.0-9.0 Urine Specific [place] 1.010 1.001-1.035 Urine Protein Negative Negative Urine Ketones Negative Negative Urine Blood Negative Negative /uL Urine Nitrite Negative Negative Urine Bilirubin Negative Negative Urine Urobilinogen Normal Negative mg/dL Urine Leukocyte Esterase Negative Negative /uL Urine RBC <1 0 - 4 /hpf Urine Microscopic WBC < 1 0-5 /HPF Urine Squamous Epithelial Cells None seen <5 /hpf Urine Bacteria None seen None Seen /hpf Urine Glucose Normal Normal mg/dL White Blood Count 7.3 4.4-10.8 10^3/uL Red Blood Count 4.67 4.0-5.20 10^6/uL Hemoglobin 14.2 12.2-16.2 g/dL Hematocrit 41.0 36.0-46.0 % Mean Corpuscular Volume 87.8 80.0-100.0 fL Mean Corpuscular Hemoglobin 30.5 28.0-32.0 pg Mean Corpuscular Hemoglobin Concent 34.7 32.0-36.0 g/dL Red Cell Distribution Width 14.7 H 11.8-14.3 % Platelet Count 359 140-450 10^3/uL Mean Platelet Volume 7.7 6.9-10.8 fL Neutrophils (%) (Auto) 46.9 37.0-80.0 % Lymphocytes (%) (Auto) 43.2 10.0-50.0 % Monocytes (%) (Auto) 7.0 0.0-12.0 % Eosinophils (%) (Auto) 1.7 0.0-7.0 % Basophils (%) (Auto) 1.2 0.0-2.0 % Neutrophils # (Auto) 3.4 1.6-8.6 10 ^3/uL Lymphocytes # (Auto) 3.1 0.4-5.4 10 ^3/uL Monocytes # (Auto) 0.5 0-1.3 10 ^3/uL Eosinophils # (Auto) 0.1 0-0.8 10 ^3/uL Basophils # (Auto) 0.1 0-0.2 10 ^3/uL Nucleated Red Blood Cells 0.1 % ORDERING PHYSICIAN: PRAKASH TAPIA MD PROCEDURE(s): CXRP - CHEST PORTABLE REASON: sob ORDER NUMBER(s): [id number], ACCESSION NUMBER(s): [id number] EXAM: XR Chest, 1 View CLINICAL INDICATION: sob TECHNIQUE: Frontal view of the chest. COMPARISON: None FINDINGS: LUNGS AND PLEURAL SPACES: Unremarkable. No consolidation. No pneumothorax. HEART: Unremarkable. No cardiomegaly. MEDIASTINUM: Unremarkable. Normal mediastinal contour. BONES/JOINTS: Unremarkable. No acute fracture. OTHER FINDINGS: . None. IMPRESSION: No acute cardiopulmonary process. ATED BY: KOBI STEEN MD DICTATED DATE/TIME: 03/08/25 1000 SIGNED BY: KOBI STEEN MD SIGNED DATE/TIME: 03/08/25 1000 CC: ORDERING PHYSICIAN: PRAKASH TAPIA MD PROCEDURE(s): HWOCT - HEAD WITHOUT CONTRAST REASON: tia ORDER NUMBER(s): [id number], ACCESSION NUMBER(s): [id number] EXAM: CT Head Without Intravenous Contrast CLINICAL INDICATION: tia TECHNIQUE: Axial computed tomography images of the head/brain without intravenous contrast. This CT exam was performed using one or more of the following dose reduction techniques: automated exposure control, adjustment of the mA and/or kV according to patient size, and/or use of iterative reconstruction technique. CONTRAST: COMPARISON: HEAD WITHOUT CONTRAST on DOS: 11/14/19 FINDINGS: BRAIN AND EXTRA-AXIAL SPACES: The cerebral and cerebellar sulci are mildly prominent consistent with mild brain atrophy. No acute intracranial hemorrhage, midline shift or mass effect. If symptoms persist, further evaluation with MRI is recommended. No significant white matter disease. BONES/JOINTS: Unremarkable. No acute fracture. SOFT TISSUES: Unremarkable. SINUSES: Unremarkable as visualized. No acute sinusitis. MASTOID AIR CELLS: Unremarkable as visualized. No mastoid effusion. OTHER FINDINGS: . . IMPRESSION: No acute intracranial hemorrhage, midline shift or mass effect. If symptoms persist, further evaluation with MRI is recommended. ATED BY: KOBI STEEN MD DICTATED DATE/TIME: 03/08/25 100 SIGNED BY: KOBI STEEN MD SIGNED DATE/TIME: 03/08/25 100 CC: Assessment/Plan Assessment/Plan Generalized weakness---patient is from home where emergency medical personnel contacted by son due to generalized weakness x1 week Patient reports inability to sleep x3 days that can be contributing her weakness Admit to medical-surgical unit Reviewed CBC which is normal Reviewed BMP which is normal Cardiac enzyme negative x2 Urinalysis is negative Reviewed chest x-ray which is normal Reviewed CT head which is negative UDS pending Vitamin B12 pending Aspirin daily IV hydration PT eval Hypertension-controlled Continue to monitor Hyperlipidemia Continue simvastatin as prescribed Anxiety/depression Continue medication as prescribed Reconcile home medication DVT prophylaxis PUD prophylaxis not indicated no history of GERD Labs in a.m. Discussed plan of care with the patient in which all questions concerns have been addressed Plan discussed with: Patient My Orders Orders - AGNES ROSEN PROFESSOR OF FOOD BIOCHEMISTRY Procedure Category Date Status Time Admit ADMIT 03/08/25 Transmitted 13:53 2 Gm Sodium Diet DIET 03/08/25 Transmitted Dinner Sodium Chloride 0.9% PHA 03/08/25 In Process 14:00 Enoxaparin Sodium PHA 03/09/25 In Process (Lovenox) 10:00 Complete Blood Count LAB 03/09/25 Verified 04:00 Comprehensive LAB 03/09/25 Verified Metabolic Panel 04:00 Pt Request For Service PT 03/08/25 Logged 13:53 Condition: Fair TJ 03/08/25 In Process 13:53 Acetaminophen Tablet PHA 03/08/25 In Process (Tylenol Tablet) 14:00 Bedrest With Bathroom TJ 03/08/25 In Process Privileg 13:53 Vitamin B12 LAB 03/08/25 In Process 13:55 Aspirin Tablet PHA 03/09/25 In Process 10:00 Date of Service: Mar 08, 2025 Billing Provider: AGNES ROSEN Common Visit Codes: [id number] INP/OBS CARE (HIGH) AGNES ROSEN Mar 08, 2025 15:28
[2025-03-08 16:05] LABS: Amphetamine Screen, Urine Neg (NEGATIVE); Barbiturate Scree,Urine Neg (NEGATIVE); Benzodiazephine Screen, Urine Neg (NEGATIVE); Cannabinoid Screen, Urine Neg (NEGATIVE); Cocaine Screen, Urine Neg (NEGATIVE); Opiate Scree,Urine Neg (NEGATIVE); Phencyclidine Screen, Urine Neg (NEGATIVE)
[2025-03-08 16:08] VITALS: BP 118/46; PULSE 50; RESP 16; TEMP 97.7; O2SAT 91
[2025-03-08 16:45] VITALS: BP 118/46; PULSE 50; RESP 16; TEMP 98.2; O2SAT 96
[2025-03-08 17:00] VITALS: BP 134/46; PULSE 54; RESP 16; TEMP 97.9; O2SAT 99
[2025-03-08 20:00] VITALS: PULSE 50; RESP 16; O2SAT 96
[2025-03-08 21:00] VITALS: BP 129/50; PULSE 50; RESP 16; TEMP 97.2; O2SAT 96
[2025-03-08] MEDS: ATORVASTATIN 20 MG TAB PO SCH (21:20)
[2025-03-09] VITALS (9 sets, daily range): BP systolic 123–147; BP diastolic 44–69; PULSE 51–67; RESP 15–18; TEMP 97.4–98.7; O2SAT 95–99
[2025-03-09 05:46] LABS: Basophils # (auto) 0.1 10 ^3/uL (0-0.2); Basophils % (auto) 0.8 % (0.0-2.0); Eosinophils # (auto) 0.2 10 ^3/uL (0-0.8); Eosinophils % (auto) 2.4 % (0.0-7.0); Hematocrit 34.4 % (36.0-46.0); Hemoglobin 11.5 g/dL (12.2-16.2); Lymphocytes # (auto) 2.9 10 ^3/uL (0.4-5.4); Lymphocytes % (auto) 42.2 % (10.0-50.0); Mean Corpuscular Hemoglobin 30.1 pg (28.0-32.0); Mean Corpuscular Hgb Conc. 33.4 g/dL (32.0-36.0); Mean Corpuscular Volume 90.1 fL (80.0-100.0); Monocytes # (auto) 0.5 10 ^3/uL (0-1.3); Monocytes % (auto) 7.5 % (0.0-12.0); Neutrophils # (auto) 3.3 10 ^3/uL (1.6-8.6); Neutrophils % (auto) 47.1 % (37.0-80.0); Platelet Count (auto) 312 10^3/uL (140-450); Red Blood Cells 3.82 10^6/uL (4.0-5.20); Red Cell Distribution Width 14.1 % (11.8-14.3)
[2025-03-09] MEDS: ACETAMINOPHEN 325 MG TAB PO PRN (05:59)
[2025-03-09 06:00] LABS: Alanine Aminotransferase 25 U/L (7-40); Albumin 3.7 g/dL (3.2-4.8); Alkaline Phosphatase 90 U/L (46-116); Anion Gap 7 (5-15); Aspartate Aminotransferase 22 U/L (13-40); BUN/Creatinine Ratio 14.8 (10.0-20.0); Blood Urea Nitrogen 12 mg/dL (9-23); Calcium 9.2 mg/dL (8.7-10.4); Carbon Dioxide 25 mmol/L (20-31); Chloride 105 mmol/L (98-107); Glucose 85 mg/dL (74-106); Potassium 3.8 mmol/L (3.5-5.1); Sodium 137 mmol/L (136-145)
[2025-03-09 06:01] LABS: Bilirubin, Total 0.7 mg/dL (0.2-1.0)
[2025-03-09] MEDS: ENOXAPARIN SOD 40 MG/0.4 ML SYRINGE SC SCH (09:51)
[2025-03-09] MEDS: ASPirin 81 mg TAB PO SCH (09:51)
[2025-03-09] MEDS: FLUoxetine HCL 20 MG CAP PO SCH (09:51)
--- NOTE | 2025-03-09 10:44 | ECG ---
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
--- NOTE | 2025-03-09 13:50 | DVHPN2 ---
Reviewed: Care Plan, H&P, Labs, Medications, Previous Orders, Radiology Changes from previous H/P or p: No Changes Objective Vitals Vital Signs Date Time Temp Pulse Resp B/P (MAP) Pulse Ox O2 Delivery O2 Flow Rate FiO2 03/09/25 12:54 98.7 54 17 139/46 (77) 95 98.7 03/09/25 08:00 Room Air* 0 21 Intake/Output Intake and Output 03/09/25 07:00 Intake Total 2060 ml Output Total 1950 ml Balance 110 ml Intake Oral 1060 ml IV Total 1000 ml Output Urine Total 1950 ml Medications Current Medications Medications Dose Ordered Sig/Gabriel Route Start Time Stop Time Status Last Admin Dose Admin Sodium Chloride 1,000 ml @ 60 mls/hr [id number] IV 03/08/25 14:00 03/09/25 05:59 60 MLS/HR Enoxaparin Sodium 40 mg DAILY SC 03/09/25 10:00 03/09/25 09:51 40 MG Acetaminophen 650 mg Q6HP PRN PO 03/08/25 14:00 03/09/25 05:59 650 MG Aspirin 81 mg DAILY PO 03/09/25 10:00 03/09/25 09:51 81 MG Fluoxetine HCl 20 mg DAILY PO 03/09/25 10:00 03/09/25 09:51 20 MG Atorvastatin Calcium 20 mg HS PO 03/08/25 22:00 03/08/25 21:20 20 MG Laboratory Results Laboratory Tests 03/09/25 05:17 Chemistry Test 03/09/25 05:17 Albumin 3.7 g/dL (3.2-4.8) Calcium Level 9.2 mg/dL (8.7-10.4) Total Protein 6.0 g/dL (5.7-8.2) LFT Test 03/09/25 05:17 Alanine Aminotransferase (ALT) 25 U/L (7-40) Alkaline Phosphatase 90 U/L (46-116) Aspartate Amino Transferase (AST) 22 U/L (13-40) Total Bilirubin 0.7 mg/dL (0.2-1.0) Urinalysis Test 03/08/25 09:39 Urine Color Light-yellow (Yellow) Urine Clarity Clear (Clear) Urine pH 7.5 (5.0-9.0) Urine Specific [place] 1.010 (1.001-1.035) Urine Protein Negative (Negative) Urine Ketones Negative (Negative) Urine Blood Negative /uL (Negative) Urine Nitrite Negative (Negative) Urine Bilirubin Negative (Negative) Urine Urobilinogen Normal mg/dL (Negative) Urine Leukocyte Esterase Negative /uL (Negative) Urine RBC <1 /hpf (0 - 4) Urine Microscopic WBC < 1 /HPF (0-5) Urine Squamous Epithelial Cells None seen /hpf (<5) Urine Bacteria None seen /hpf (None Seen) Urine Glucose Normal mg/dL (Normal) Labs and/or images reviewed: Labs reviewed by me, Image(s) reviewed by me Assessment/Plan Assessment/Plan Acute generalized weakness Hypercholesterolemia Hypertension Anxiety Depression All Labs normal Chest x-ray negative CT head negative Continue home meds Time spent 50 minutes Advanced care planning time 20 minutes Patient is full code Plan discussed with: Patient Date of Service: Mar 09, 2025 Billing Provider: SIVA KING MD Common Visit Codes: [id number] INP/OBS CARE(HIGH) Secondary Visit Codes: [id number] CARE PLAN 30 MINUTES SIVA KING MD Mar 09, 2025 13:50
[2025-03-10] VITALS (7 sets, daily range): BP systolic 124–154; BP diastolic 66–98; PULSE 58–64; RESP 16–18; TEMP 97.8–98.7; O2SAT 96–98
[2025-03-10] MEDS ORDERED: ZOLP10TA PO (09:50)
--- NOTE | 2025-03-10 09:56 | DVHPN2 ---
Reviewed: Care Plan, H&P, Labs, Medications, Previous Orders, Radiology Changes from previous H/P or p: No Changes Objective Vitals Vital Signs Date Time Temp Pulse Resp B/P (MAP) Pulse Ox O2 Delivery O2 Flow Rate FiO2 03/10/25 09:00 98.5 63 18 147/74 (98) 97 98.5 03/10/25 08:00 Room Air* 0 21 Intake/Output Intake and Output 03/10/25 07:00 Intake Total 2750 ml Output Total 1700 ml Balance 1050 ml Intake Oral 2450 ml IV Total 300 ml Output Urine Total 1700 ml Medications Current Medications Medications Dose Ordered Sig/Gabriel Route Start Time Stop Time Status Last Admin Dose Admin Sodium Chloride 1,000 ml @ 60 mls/hr [id number] IV 03/08/25 14:00 03/10/25 00:10 60 MLS/HR Enoxaparin Sodium 40 mg DAILY SC 03/09/25 10:00 03/10/25 09:06 40 MG Acetaminophen 650 mg Q6HP PRN PO 03/08/25 14:00 03/10/25 00:23 650 MG Aspirin 81 mg DAILY PO 03/09/25 10:00 03/10/25 09:05 81 MG Fluoxetine HCl 20 mg DAILY PO 03/09/25 10:00 03/10/25 09:06 20 MG Atorvastatin Calcium 20 mg HS PO 03/08/25 22:00 03/09/25 21:14 20 MG Laboratory Results Laboratory Tests 03/09/25 05:17 Urinalysis Test 03/08/25 09:39 Urine Color Light-yellow (Yellow) Urine Clarity Clear (Clear) Urine pH 7.5 (5.0-9.0) Urine Specific [place] 1.010 (1.001-1.035) Urine Protein Negative (Negative) Urine Ketones Negative (Negative) Urine Blood Negative /uL (Negative) Urine Nitrite Negative (Negative) Urine Bilirubin Negative (Negative) Urine Urobilinogen Normal mg/dL (Negative) Urine Leukocyte Esterase Negative /uL (Negative) Urine RBC <1 /hpf (0 - 4) Urine Microscopic WBC < 1 /HPF (0-5) Urine Squamous Epithelial Cells None seen /hpf (<5) Urine Bacteria None seen /hpf (None Seen) Urine Glucose Normal mg/dL (Normal) Labs and/or images reviewed: Labs reviewed by me, Image(s) reviewed by me Assessment/Plan Assessment/Plan Acute generalized weakness Hypercholesterolemia Hypertension Anxiety Depression All Labs normal Chest x-ray negative CT head negative Continue home meds [place] [facility] [place] Daughter Robby [phone] and son-in-law Robert who live in [place] at the bedside and they are concerned that the patient is more depressed in the recent days patient's 11 years ago, requesting tele psych consult Tele psych consult pending Plan discussed with: Patient My Orders Orders - SIVA KING MD Procedure Category Date Status Time Soc Telemed Psych CONS 03/09/25 Transmitted Consult 14:25 Date of Service: Mar 10, 2025 Billing Provider: SIVA KING MD Common Visit Codes: [id number] INP/OBS CARE([facility]) SIVA KING MD Mar 10, 2025 09:56
--- NOTE | 2025-03-10 17:53 | DVHINCON2 ---
Date of Service if different f: Mar 10, 2025 Time of Service: 17:14 Consultation ([facility]) Consulting Physician: JANETH KHALIL MD Labs Laboratory Tests Test 03/08/25 09:39 03/08/25 09:47 03/08/25 10:28 03/09/25 05:17 Urine Color Light-yellow (Yellow) Urine Clarity Clear (Clear) Urine pH 7.5 (5.0-9.0) Urine Specific [place] 1.010 (1.001-1.035) Urine Protein Negative (Negative) Urine Ketones Negative (Negative) Urine Blood Negative /uL (Negative) Urine Nitrite Negative (Negative) Urine Bilirubin Negative (Negative) Urine Urobilinogen Normal mg/dL (Negative) Urine Leukocyte Esterase Negative /uL (Negative) Urine RBC <1 /hpf (0 - 4) Urine Microscopic WBC < 1 /HPF (0-5) Urine Squamous Epithelial Cells None seen /hpf (<5) Urine Bacteria None seen /hpf (None Seen) Urine Glucose Normal mg/dL (Normal) Urine Opiates Screen Neg (NEGATIVE) Urine Fentanyl Screen Neg (NEGATIVE) Urine Barbiturates Screen Neg (NEGATIVE) Urine Phencyclidine Screen Neg (NEGATIVE) Urine Amphetamines Screen Neg (NEGATIVE) Urine Benzodiazepines Screen Neg (NEGATIVE) Urine Cocaine Screen Neg (NEGATIVE) Urine Cannabinoids Screen Neg (NEGATIVE) Vitamin B12 Level 524 pg/mL (211-911) Troponin I High Sensitivity 4 ng/L (</=34) White Blood Count 7.0 10^3/uL (4.4-10.8) Red Blood Count 3.82 10^6/uL (4.0-5.20) Hemoglobin 11.5 g/dL (12.2-16.2) Hematocrit 34.4 % (36.0-46.0) Mean Corpuscular Volume 90.1 fL (80.0-100.0) Mean Corpuscular Hemoglobin 30.1 pg (28.0-32.0) Mean Corpuscular Hemoglobin Concent 33.4 g/dL (32.0-36.0) Red Cell Distribution Width 14.1 % (11.8-14.3) Platelet Count 312 10^3/uL (140-450) Mean Platelet Volume 7.1 fL (6.9-10.8) Neutrophils (%) (Auto) 47.1 % (37.0-80.0) Lymphocytes (%) (Auto) 42.2 % (10.0-50.0) Monocytes (%) (Auto) 7.5 % (0.0-12.0) Eosinophils (%) (Auto) 2.4 % (0.0-7.0) Basophils (%) (Auto) 0.8 % (0.0-2.0) Neutrophils # (Auto) 3.3 10 ^3/uL (1.6-8.6) Lymphocytes # (Auto) 2.9 10 ^3/uL (0.4-5.4) Monocytes # (Auto) 0.5 10 ^3/uL (0-1.3) Eosinophils # (Auto) 0.2 10 ^3/uL (0-0.8) Basophils # (Auto) 0.1 10 ^3/uL (0-0.2) Nucleated Red Blood Cells 0.0 % Sodium Level 137 mmol/L (136-145) Potassium Level 3.8 mmol/L (3.5-5.1) Chloride Level 105 mmol/L (98-107) Carbon Dioxide Level 25 mmol/L (20-31) Anion Gap 7 (5-15) Blood Urea Nitrogen 12 mg/dL (9-23) Creatinine 0.81 mg/dL (0.550-1.02) Glomerular Filtration Rate Calc 76 mL/min (>90) BUN/Creatinine Ratio 14.8 (10.0-20.0) Serum Glucose 85 mg/dL (74-106) Calcium Level 9.2 mg/dL (8.7-10.4) Total Bilirubin 0.7 mg/dL (0.2-1.0) Aspartate Amino Transf (AST/SGOT) 22 U/L (13-40) Alanine Aminotransferase (ALT/SGPT) 25 U/L (7-40) Alkaline Phosphatase 90 U/L (46-116) Total Protein 6.0 g/dL (5.7-8.2) Albumin 3.7 g/dL (3.2-4.8) Appearance: Stated age Psychomotor activity: WNL Behavioral: Cooperative Eye contact: Appropriate Speech: WNL Affect: Appropriate, Mood Congruent Mood: Depressed Thought processes: Linear/Goal-directed Thought content: WNL Suicidal ideations: Absent Homicidal ideations: Absent Orientation: Person, Place, Time, Situation Memory intact: Recent Intellect: Average Abstractability: WNL Concentration: Adequate Attention: Adequate Judgement: WNL Insight: Good Vitals Vital Signs Date Time Temp Pulse Resp B/P (MAP) Pulse Ox O2 Delivery O2 Flow Rate FiO2 03/10/25 13:03 98.3 61 16 152/98 (116) 96 98.3 03/10/25 08:00 Room Air* 0 21 Current medications Current Medications Medications Dose Ordered Sig/Gabriel Route Start Time Stop Time Status Last Admin Dose Admin Sodium Chloride 1,000 ml @ 60 mls/hr [id number] IV 03/08/25 14:00 03/10/25 00:10 60 MLS/HR Enoxaparin Sodium 40 mg DAILY SC 03/09/25 10:00 03/10/25 09:06 40 MG Acetaminophen 650 mg Q6HP PRN PO 03/08/25 14:00 03/10/25 00:23 650 MG Aspirin 81 mg DAILY PO 03/09/25 10:00 03/10/25 09:05 81 MG Fluoxetine HCl 20 mg DAILY PO 03/09/25 10:00 03/10/25 09:06 20 MG Atorvastatin Calcium 20 mg HS PO 03/08/25 22:00 03/09/25 21:14 20 MG Treatment plan discussed: With staff Medication adjusted: Yes Labs ordered: No Psychotherapy provided: No Type: Voluntary History of Present Illness Reason for Consult : psychiatric evaluation PER H&P: .This is a 74-year-old female with history of hypertension, hyperlipidemia, anxiety, depression and UTI presents to ED with chief complaint of generalized weakness. EMS reports patient is coming from home where emergency medical personnel was contacted by son due to patient having generalized weakness for one week. Upon arrival to the ED patient complaint of chest pain with associated palpitation visible diaphoresis and hypertension. When evaluated patient in ER bed 5, she states brain fog that may be stemming from multiple medication that she is currently taking. She also comments about not being able to sleep for the past three days. 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 She reports increased stress from her son along with missing her who 11 years ago. The patient is concerned about her symptoms and would like to be further evaluated and treated. The patient will be admitted under hospitalist care to the medical-surgical unit. The patient denies fever, chills, headache, dizziness, palpitation, shortness of breath, nausea, vomiting, abdominal pain, diarrhea, constipation and other associated symptoms. The plan has been discussed with the patient and primary RN in which all questions concerns have been addressed. PSYCHIATRIST HPI: The patient was seen and evaluated at [facility] via telepsychiatry platform with online assembler installer general. 74 yr old female noted she cannot sleep well. She gets about six hours a night. She feels low energy during the day. She hasn't been able to sleep for about six days. She has had many medication changes from her psychiatrist which has caused irregularity in her mood. She has had a lot of events occur such as her dieing and caring for her son. She noted she has been taking klonopin 2mg at night for sleep. She noted her appetite is good. She stated her depression is getting better, it is just her sleep that is not good. She does not desire to start new medications, but feels she slept well on the klonopin and would like to restart taht. She denied having auditory and visual hallucinations and homicidal ideation. Past Psychiatric History : No history of psychiatric hospitalization or suicide attempt. Diagnosed with depression. Past Medical History : hypertension, hyperlipidemia. Current psychotropic medications: Klonopin 2mg qhs, fluoxetine 60mg qam. NKDA Substance use: occasional social alcohol use. Denied use of other substances. Social History : Lives in [place] with son. She has three children. . Diagnosis: MAJOR DEPRESSIVE DISORDER, RECURRENT Formulation: This 74 yr old female appears to suffer from depression and her main issues is difficulty sleeping. She slept well on Klonopin 2mg and may benefit from starting Klonopin 2mg for sleep. She does not warrant hos pitalization. Plan: 1. Safety. The patient is a low risk for self-harm and may be managed as an outpatient. 2. Legal-Voluntary status. 3. Medications: Recommend starting Klonopin 2mg qhs for sleep and continuing Fluoxetine 60mg qam. If depression, low energy, apathy, continue to be an issue once her sleep is normalized, I recommend considering starting Wellbutrin 100mg qam to augment. At present, she is not open to starting additional medications. 4. Case discussed with team JONNY Villalpando. 5. Please recontact psychiatry for further follow up or reevaluation. Assessment/Diagnosis/Plan Reviewed: Labs, Medications, Previous Orders JANETH KHALIL MD Mar 10, 2025 17:15
[2025-03-11 01:00] VITALS: BP 155/74; PULSE 59; RESP 17; TEMP 97.6; O2SAT 96
[2025-03-11 04:33] LABS: Potassium 3.5 mmol/L (3.5-5.1)
[2025-03-11 04:37] LABS: Magnesium 1.9 mg/dL (1.6-2.6)
[2025-03-11 04:59] VITALS: BP 150/77; PULSE 60; RESP 17; TEMP 98.2; O2SAT 97
[2025-03-11 08:00] VITALS: RESP 16
[2025-03-11 08:16] VITALS: BP 162/49; PULSE 54; RESP 20; TEMP 98.1; O2SAT 99
--- NOTE | 2025-03-11 08:38 | ECG ---
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
--- NOTE | 2025-03-11 09:45 | DVHPN2 ---
Reviewed: Care Plan, H&P, Labs, Medications, Previous Orders, Radiology Changes from previous H/P or p: No Changes Objective Vitals Vital Signs Date Time Temp Pulse Resp B/P (MAP) Pulse Ox O2 Delivery O2 Flow Rate FiO2 03/11/25 08:16 98.1 54 20 162/49 (86) 99 98.1 03/10/25 20:00 Room Air* 0 21 Intake/Output Intake and Output 03/11/25 07:00 Intake Total 2550 ml Output Total 2300 ml Balance 250 ml Intake Oral 1550 ml IV Total 1000 ml Output Urine Total 2300 ml # Bowel Movements 1 Medications Current Medications Medications Dose Ordered Sig/Gabriel Route Start Time Stop Time Status Last Admin Dose Admin Sodium Chloride 1,000 ml @ 60 mls/hr [id number] IV 03/08/25 14:00 03/10/25 20:29 60 MLS/HR Enoxaparin Sodium 40 mg DAILY SC 03/09/25 10:00 03/11/25 09:10 40 MG Acetaminophen 650 mg Q6HP PRN PO 03/08/25 14:00 03/10/25 23:44 650 MG Aspirin 81 mg DAILY PO 03/09/25 10:00 03/11/25 09:10 81 MG Fluoxetine HCl 20 mg DAILY PO 03/09/25 10:00 03/11/25 09:10 20 MG Atorvastatin Calcium 20 mg HS PO 03/08/25 22:00 03/10/25 21:46 20 MG Laboratory Results Laboratory Tests 03/09/25 05:17 03/11/25 03:51 Chemistry Test 03/11/25 03:51 Magnesium Level 1.9 mg/dL (1.6-2.6) Urinalysis Test 03/08/25 09:39 Urine Color Light-yellow (Yellow) Urine Clarity Clear (Clear) Urine pH 7.5 (5.0-9.0) Urine Specific [place] 1.010 (1.001-1.035) Urine Protein Negative (Negative) Urine Ketones Negative (Negative) Urine Blood Negative /uL (Negative) Urine Nitrite Negative (Negative) Urine Bilirubin Negative (Negative) Urine Urobilinogen Normal mg/dL (Negative) Urine Leukocyte Esterase Negative /uL (Negative) Urine RBC <1 /hpf (0 - 4) Urine Microscopic WBC < 1 /HPF (0-5) Urine Squamous Epithelial Cells None seen /hpf (<5) Urine Bacteria None seen /hpf (None Seen) Urine Glucose Normal mg/dL (Normal) Labs and/or images reviewed: Labs reviewed by me, Image(s) reviewed by me Assessment/Plan Assessment/Plan Acute generalized weakness Hypercholesterolemia Hypertension Anxiety Major depressive disorder recurrent: tele psych consult by Dr. Brad Enamorado appreciated, not a [id number] candidate advised Klonopin 2 mg p.o. HS for sleep and Prozac 60 mg p.o. everyday morning for depression, orders placed All Labs normal Chest x-ray negative CT head negative Continue home meds [place] [facility] [place] Daughter Robby [phone] and son-in-law Robert who live in [place] at the bedside and they are concerned that the patient is more depressed in the recent days Plan discussed with: Patient, Daughter, Other (RN) My Orders Orders - SIVA KING MD Procedure Category Date Status Time *Tele Psych Consult CONS 03/10/25 Transmitted 09:56 Communication Order ORDERS 03/10/25 Transmitted 09:56 Fluoxetine Capsule PHA 03/11/25 Verified (Prozac Capsule) 09:30 Clonazepam Tablet PHA 03/11/25 Verified (Klonopin Tablet) 22:00 Date of Service: Mar 11, 2025 Billing Provider: SIVA KING MD Common Visit Codes: [id number] INP/OBS CARE([facility]) SIVA KING MD Mar 11, 2025 09:45
--- NOTE | 2025-03-11 09:53 | DVHDS2 ---
Discharge Summary Date of Admission Mar 08, 2025 at 13:53 Date of Discharge: Mar 11, 2025 Admitting Diagnosis Generalized weakness and lack of sleep Wounds: None Labs/Diagnostic Data: Laboratory Results Test 03/11/25 03:51 03/09/25 05:17 03/08/25 09:47 03/08/25 09:39 Potassium Level 3.5 mmol/L (3.5-5.1) Magnesium Level 1.9 mg/dL (1.6-2.6) Troponin I High Sensitivity 3 ng/L (</=34) White Blood Count 7.0 10^3/uL (4.4-10.8) Red Blood Count 3.82 10^6/uL (4.0-5.20) Hemoglobin 11.5 g/dL (12.2-16.2) Hematocrit 34.4 % (36.0-46.0) Mean Corpuscular Volume 90.1 fL (80.0-100.0) Mean Corpuscular Hemoglobin 30.1 pg (28.0-32.0) Mean Corpuscular Hemoglobin Concent 33.4 g/dL (32.0-36.0) Red Cell Distribution Width 14.1 % (11.8-14.3) Platelet Count 312 10^3/uL (140-450) Mean Platelet Volume 7.1 fL (6.9-10.8) Neutrophils (%) (Auto) 47.1 % (37.0-80.0) Lymphocytes (%) (Auto) 42.2 % (10.0-50.0) Monocytes (%) (Auto) 7.5 % (0.0-12.0) Eosinophils (%) (Auto) 2.4 % (0.0-7.0) Basophils (%) (Auto) 0.8 % (0.0-2.0) Neutrophils # (Auto) 3.3 10 ^3/uL (1.6-8.6) Lymphocytes # (Auto) 2.9 10 ^3/uL (0.4-5.4) Monocytes # (Auto) 0.5 10 ^3/uL (0-1.3) Eosinophils # (Auto) 0.2 10 ^3/uL (0-0.8) Basophils # (Auto) 0.1 10 ^3/uL (0-0.2) Nucleated Red Blood Cells 0.0 % Sodium Level 137 mmol/L (136-145) Chloride Level 105 mmol/L (98-107) Carbon Dioxide Level 25 mmol/L (20-31) Anion Gap 7 (5-15) Blood Urea Nitrogen 12 mg/dL (9-23) Creatinine 0.81 mg/dL (0.550-1.02) Glomerular Filtration Rate Calc 76 mL/min (>90) BUN/Creatinine Ratio 14.8 (10.0-20.0) Serum Glucose 85 mg/dL (74-106) Calcium Level 9.2 mg/dL (8.7-10.4) Total Bilirubin 0.7 mg/dL (0.2-1.0) Aspartate Amino Transferase (AST) 22 U/L (13-40) Alanine Aminotransferase (ALT) 25 U/L (7-40) Alkaline Phosphatase 90 U/L (46-116) Total Protein 6.0 g/dL (5.7-8.2) Albumin 3.7 g/dL (3.2-4.8) Vitamin B12 Level 524 pg/mL (211-911) Urine Color Light-yellow (Yellow) Urine Clarity Clear (Clear) Urine pH 7.5 (5.0-9.0) Urine Specific [place] 1.010 (1.001-1.035) Urine Protein Negative (Negative) Urine Ketones Negative (Negative) Urine Blood Negative /uL (Negative) Urine Nitrite Negative (Negative) Urine Bilirubin Negative (Negative) Urine Urobilinogen Normal mg/dL (Negative) Urine Leukocyte Esterase Negative /uL (Negative) Urine RBC <1 /hpf (0 - 4) Urine Microscopic WBC < 1 /HPF (0-5) Urine Squamous Epithelial Cells None seen /hpf (<5) Urine Bacteria None seen /hpf (None Seen) Urine Glucose Normal mg/dL (Normal) Urine Opiates Screen Neg (NEGATIVE) Urine Fentanyl Screen Neg (NEGATIVE) Urine Barbiturates Screen Neg (NEGATIVE) Urine Phencyclidine Screen Neg (NEGATIVE) Urine Amphetamines Screen Neg (NEGATIVE) Urine Benzodiazepines Screen Neg (NEGATIVE) Urine Cocaine Screen Neg (NEGATIVE) Urine Cannabinoids Screen Neg (NEGATIVE) Other Laboratory Tests 03/11/25 03:51 03/09/25 05:17 Brief Hx & Hospital Course: 74-year-old female admitted for generalized weakness patient has a history of hypertension hypercholesterolemia anxiety and major depression patient complained she is not able to sleep no energy unable to concentrate and lack of appetite all symptoms confirming major depression. All labs were normal chest x-ray negative CT head negative patient lives alone in the [facility] her daughter and son-in-law live in the [place] 11 years ago tele psych consult by Dr. Brad Enamorado recommended Klonopin 2 mg p.o. HS for sleep and increase Prozac to 60 mg p.o. daily in the morning for depression. Discussed about SNF placement for rehab medication management and physical with the patient's daughter and the patient and they agreed. Consults/Reason for consult Tele psych Dr. Brad Enamorado Operations or Procedures CT head Condition at Discharge: Fair Final Diagnosis/Problems List Acute generalized weakness Hypercholesterolemia Hypertension Anxiety Major depressive disorder recurrent: tele psych consult by Dr. Brad Enamorado appreciated, not a [id number] candidate advised Klonopin 2 mg p.o. HS for sleep and Prozac 60 mg p.o. everyday morning for depression, orders placed All Labs normal Chest x-ray negative CT head negative Continue home meds Lives alone in the [facility] Daughter Robby [phone] and son-in-law Robert who live in [place] at the bedside and they are concerned that the patient is more depressed in the recent days Discharge Disposition: [facility] Facility Discharge Instruct/Medications Diet: Cardiac 2g Na,low cholest Activity: No Restrictions, As Tolerated Follow Up/Referral: Follow up with the long term Medications: see list 39 (Time Taken for discharge summary 39 minutes) Discharge Statement: "Patient was advised to return to the ER or call 911 if any headaches, dizziness, shortness of breath, chest pain, abdominal pain, bleeding, fevers, or worsening of medical condition. Patient was counseled about treatment plan, medications, possible side effects, patientverbalized understanding. All questions were answered to the best of my ability. This discharge took greater then 30 minutes in planning, reviewing documentation, counseling the patient, and discussing with other team members." ASSESSMENT ASSESSMENT Hospital Course Uneventful Assessment Acute generalized weakness Hypercholesterolemia Hypertension Anxiety Major depressive disorder recurrent: tele psych consult by Dr. Brda Enamorado appreciated, not a [id number] candidate advised Klonopin 2 mg p.o. HS for sleep and Prozac 60 mg p.o. everyday morning for depression, orders placed All Labs normal Chest x-ray negative CT head negative Continue home meds Lives alone in the [facility] Daughter Robby [phone] and son-in-law Robert who live in [place] at the bedside and they are concerned that the patient is more depressed in the recent days Date of Service: Mar 11, 2025 Billing Provider: SIVA KING MD Common Visit Codes: [id number]/[id number] DISCH DAY >30min SIVA KING MD Mar 11, 2025 09:53
[2025-03-11] MEDS: FLUoxetine HCL 20 MG CAP PO ONE (10:14)
[2025-03-11] MEDS ORDERED: FLUO1TAB14 PO (12:24)
[2025-03-11] MEDS ORDERED: CLON0.5T3 PO (12:24)
[2025-03-11] MEDS ORDERED: CLON-857 PO (12:24)
[2025-03-11 12:27] VITALS: BP 187/82; PULSE 70; RESP 16; TEMP 97.5; O2SAT 100
[2025-03-11] MEDS: cloNIDine HCL 0.1 MG TAB PO ONE (15:01)
[2025-03-11] MEDS ORDERED: clonazePAM 0.5 MG TAB PO SCH (22:00)
[2025-03-12] MEDS ORDERED: FLUoxetine HCL 20 MG CAP PO SCH (07:00)
== END 2025-03-11 15:58 | disposition home or self-care (01) | DRG 880 ==
LOC: ER 09:01 → EDBD 09:01 → OVERFLOW 13:53 → EAST 16:44
PROVIDERS: ADMIT Family Medicine; ATTEND Family Medicine
DX: F41.9 Anxiety disorder, unspecified (principal); F33.9 Major depressive disorder, recurrent, unspecified; R07.9 Chest pain, unspecified; I16.0 Hypertensive urgency; I10 Essential (primary) hypertension; E78.00 Pure hypercholesterolemia, unspecified; Z79.82 Long term (current) use of aspirin; Z63.4 Disappearance and death of family member
CPT/HCPCS: 36415; 70450; 71045; 80048; 80053; 80307; 81001; 82607; 83735; 84132; 84484; 85025; 93005; 96360; 96361; 97163; 99291; G0378